=== PATIENT | male | born 1960 | race Caucasian/White ===

== ENCOUNTER 2016-12-28 06:57 | Emergency (ER) | payer OTHER ==
[~2016-12-28] VITALS: Ht 182.9 cm; Wt 93.0 kg
[2016-12-28 07:35] LABS: POTASSIUM ISTAT 3.9 mmol/L (3.5-5.0)
[2016-12-28] MEDS ORDERED: IOHEXOL 300 MG/ML 75 ML VIAL IV ONE (08:30)
[2016-12-28] MEDS ORDERED: CONTRAST GIVEN MC PRN (08:45)
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
--- NOTE | 2016-12-28 09:01 | RAD ---
CT of the chest, abdomen and pelvis with contrast, 12/28/2016: History: [facility] Multidetector CT imaging was performed following an IV bolus injection of iodinated contrast material. There is minimal aortic calcific plaquing. The aorta is otherwise unremarkable. No mediastinal hemorrhage is seen. There are calcified mediastinal lymph nodes due to old granulomatous disease. Right upper lobe calcified granulomata are present. There are mild hazy left parahilar groundglass opacities. There is mild linear atelectasis or scarring in the lingula. There is no evidence of pleural fluid or pneumothorax. No hepatic or splenic laceration is evident. The gallbladder is surgically absent. No pancreatic abnormality is detected. The kidneys are unremarkable. The bowel loops are unremarkable. No free fluid or free air is evident in the abdomen or pelvis. No fracture is identified. There are mild scattered degenerative changes in the spine. IMPRESSION: 1. Minimal nonspecific left parahilar groundglass opacities compatible with infiltrate and/or scarring. 2. No acute abnormality is identified in the abdomen or pelvis. PQRS Compliance Statement: One or more of the following individualized dose reduction techniques were utilized for this examination: 1. Automated exposure control 2. Adjustment of the mA and/or kV according to patient size 3. Use of iterative reconstruction technique
[2016-12-28] MEDS ORDERED: fentaNYL PF VIAL 100 MCG/2 ML VIAL IV ONE (09:15)
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
[2016-12-28] MEDS ORDERED: IBUP-1060 PO (09:27)
[2016-12-28] MEDS ORDERED: HYDR-971 PO (09:27)
[2016-12-28] MEDS ORDERED: CYCL5TAB PO (09:27)
[2016-12-28 11:13] VITALS: BP 157/98
== END 2016-12-28 11:54 | disposition home or self-care (01) ==
LOC: ER 06:57
DX: S46.912A Strain of unspecified muscle, fascia and tendon at shoulder and upper arm level, left arm, initial encounter (principal); S46.911A Strain of unspecified muscle, fascia and tendon at shoulder and upper arm level, right arm, initial encounter; M54.5 Low back pain; R07.89 Other chest pain; K21.9 Gastro-esophageal reflux disease without esophagitis; Z90.49 Acquired absence of other specified parts of digestive tract; F10.10 Alcohol abuse, uncomplicated; Y90.9 Presence of alcohol in blood, level not specified; Z88.5 Allergy status to narcotic agent; V98.8XXA Other specified transport accidents, initial encounter; Y93.89 Activity, other specified; Y92.89 Other specified places as the place of occurrence of the external cause; Y99.8 Other external cause status
CPT/HCPCS: 71260; 72125; 73030; 74177; 80047; 96374; 99285; J3010; Q9967; 99284-25